=== PATIENT | female | born 1990 | race Hispanic/Latino ===

== ENCOUNTER 2021-05-16 01:10 | Emergency (ER) | payer MEDICAID ==
[~2021-05-16] VITALS: Ht 144.8 cm; Wt 63.5 kg
[~2021-05-16 01:10] MED LIST: FAMO20TA8 PO; FLUO20SO2 PO; MAGN400T25 PO; MELA3CAP2 PO; PANT20TA18 PO; SENN1TAB72 PO
[2021-05-16] MEDS ORDERED: ACETAMINOPHEN 325 MG/10.15ML UDCUP PO ONE (02:00)
[2021-05-16 02:26] LABS: BASOPHILS % (AUTO) 0.1 % (0.0-5.0); EOSINOPHILS % (AUTO) 1.5 % (0.0-8.0); HEMATOCRIT 36.3 % (36-48); LYMPHOCYTES % (AUTO) 16.3 % (21.0-51.0); MEAN CORPUSCULAR HGB CONC 31.7 g/dL (32.0-36.0); MEAN CORPUSCULAR VOLUME 78.9 fL (79-99); MONOCYTES % (AUTO) 5.3 % (3.0-13.0); NEUTROPHILS % (AUTO) 76.4 % (40.0-77.0); PLATELET COUNT (AUTO) 383 K/uL (130-400); RED CELL DISTRIBUTION WIDTH 19.3 % (11.0-15.5); WHITE BLOOD COUNT (AUTO) 13.7 K/uL (4.8-10.8)
[2021-05-16 02:27] LABS: APPEARANCE,URINE CLEAR (CLEAR); BILIRUBIN,URINE NEGATIVE (NEGATIVE); COLOR,URINE YELLOW (YELLOW); GLUCOSE, URINE (UA) NEGATIVE (NEGATIVE); KETONES,URINE 40 mg/dL (NEGATIVE); LEUKOCYTE ESTERASE ,URINE NEGATIVE (NEGATIVE); NITRATE,URINE NEGATIVE (NEGATIVE); OCCULT BLOOD,URINE NEGATIVE (NEGATIVE); PROTEIN,URINE NEGATIVE (NEGATIVE)
[2021-05-16 02:37] LABS: POTASSIUM 4.3 mmol/L (3.5-5.1)
[2021-05-16 02:42] LABS: ALBUMIN 3.5 g/dL (3.5-5.0); BILIRUBIN,TOTAL 0.5 mg/dL (0.2-1.0); TOTAL PROTEIN, SERUM 7.9 g/dL (6.0-8.3)
[2021-05-16 02:52] LABS: CREATININE 0.1 mg/dL (0.5-1.5)
[2021-05-16 08:33] VITALS: BP 119/86
== END 2021-05-16 08:36 | disposition home or self-care (01) ==
LOC: EDH 01:10
DX: R33.9 Retention of urine, unspecified (principal); R30.0 Dysuria; K21.9 Gastro-esophageal reflux disease without esophagitis; Z98.890 Other specified postprocedural states; Z79.899 Other long term (current) drug therapy
CPT/HCPCS: 36415; 51702; 74176; 80053; 81003; 83605; 84145; 85025; 87040; 87077; 87088; 87186